=== PATIENT | female | born 1990 | race African-American/Black ===

== ENCOUNTER 2022-06-19 17:16 | Emergency (ER) | payer OTHER ==
[2022-06-19 17:24] VITALS: BP 124/88; PULSE 81; RESP 16; TEMP 97.3
[2022-06-19] MEDS ORDERED: ONDANSETRON 4 MG/2 ML VIAL IVP STA (17:45)
[2022-06-19] MEDS ORDERED: SODIUM CHLORIDE 0.9% 1,000 ML IV STA (17:45)
[2022-06-19] MEDS ORDERED: KETOROLAC 15 MG/ML 1 ML VIAL IVP STA (17:46)
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
--- NOTE | 2022-06-19 18:17 | CT ---
EXAMINATION TYPE: CT brain cspine wo con DATE OF EXAM: 06/19/2022 COMPARISON: HISTORY: head trauma, dizzy, vomiting CT DLP: 1238 mGycm Automated exposure control for dose reduction was used. Images of the brain and cervical spine obtained with no contrast. Ventricles of normal size. There is no mass effect or midline shift. No sign of intracranial hemorrha ge. Calvarium is intact. Skull base is intact. There is normal aeration of the mastoid sinuses. No ev idence of cerebral edema. Cervical vertebra have normal spacing and alignment. Posterior elements are intact. Facet joints are intact. Prevertebral soft tissues are intact. IMPRESSION: Negative CT scan of the brain. Negative CT scan cervical spine. No fracture.
--- NOTE | 2022-06-19 18:58 | US ---
EXAMINATION TYPE: US thyroid st tissue head/neck DATE OF EXAM: 06/19/2022 COMPARISON: NONE CLINICAL HISTORY: Abnormal thyroid levels. abn thyroid labs, no thyroid symptoms GLAND SIZE: Right Lobe: 3.5 x 1.0 x 1.9 cm Overall Parenchyma: homogenous Left Lobe: 3.3 x 1.7 x 0.8 cm Overall Parenchyma: homogeneous Isthmus Thickness: 0.3 cm NODULES RIGHT: # of nodules measured on right: 0 LEFT: # of nodules measured on left: 0 ISTHMUS: # of nodules measured in the isthmus: 0 Bilateral neck scanned, no evidence of lymphadenopathy. IMPRESSION: Normal thyroid sonogram. 2017 ACR TI-RADS LEVEL: 1 *Highest TI-RADS level nodule reported
[2022-06-19] MEDS ORDERED: ONDANSETRON 4 MG ODT STARTER PACK 2 TAB BTL PO STA (19:08)
[2022-06-19] MEDS ORDERED: ACET/COD 300 MG/30 MG STARTER PACK 6 TAB BTL PO STA (19:08)
[2022-06-19] MEDS ORDERED: MORPHINE SULFATE 2 MG/ML SYRINGE IVP STA (19:08)
[2022-06-19] MEDS ORDERED: PROCHLORPERAZINE INJ 10 MG/2 ML VIAL IVP STA (19:18)
== END 2022-06-19 20:44 | disposition home or self-care (01) ==
LOC: EC 17:16
DX: S09.90XA Unspecified injury of head, initial encounter (principal); F17.290 Nicotine dependence, other tobacco product, uncomplicated; Z91.010 Allergy to peanuts; W01.198A Fall on same level from slipping, tripping and stumbling with subsequent striking against other object, initial encounter
CPT/HCPCS: 76536; 72125; 70450; 99284; 96374; 96375; 96361; J0780; J2405; J2270; J1885; S0119